=== PATIENT | male | born 1945 | race Asian ===

== ENCOUNTER 2025-03-08 19:39 | Inpatient (IN) | payer BC, MEDICARE ==
[~2025-03-08] VITALS: Ht 172.7 cm; Wt 65.8 kg
[2025-03-08] MEDS: ONDANSETRON 4 MG/2 ML VIAL IV ONE (19:45)
[2025-03-08] MEDS: IV NORMAL SALINE 500 ML BAG IV ONE (19:45)
[2025-03-08 20:32] LABS: PLATELET COUNT (AUTO) 384 K/uL (152-348); RED BLOOD CELL COUNT(AUTO) 3.97 MIL/uL (4.06-5.63); RED CELL DISTRIBUTION WIDTH 16.0 % (12.1-16.2); WHITE BLOOD COUNT (AUTO) 12.4 K/uL (3.6-10.2)
[2025-03-08 20:34] LABS: *OCCULT BLOOD STOOL NEGATIVE (NEGATIVE)
[2025-03-08] MEDS ORDERED: ONDANSETRON 4 MG/2 ML VIAL ONE (20:45)
[2025-03-08 20:53] LABS: ASPARTATE AMINOTRANSFERASE 31 U/L (15-37); CREATININE 1.1 mg/dL (0.6-1.3); SODIUM SERUM 145 mmol/L (136-145); TOTAL PROTEIN, SERUM 6.2 g/dL (6.4-8.2); UREA NITROGEN, BLOOD 21 mg/dL (7-18)
[2025-03-08 21:00] LABS: LACTIC ACID 2.4 mmol/L (0.4-2.0)
[2025-03-08] MEDS ORDERED: ASPI81TA31 PO (21:40)
[2025-03-08] MEDS ORDERED: [UNRECOGNIZED DRUG - CODE] TOP (22:27)
[2025-03-08] MEDS ORDERED: CARB1TAB33 PO (22:27)
[2025-03-08] MEDS ORDERED: CHOL500062 PO (22:27)
[2025-03-08] MEDS ORDERED: PANT40TA49 PO (22:27)
[2025-03-08] MEDS ORDERED: LOSA50TA39 PO (22:27)
[2025-03-08] MEDS ORDERED: APIX5TAB PO (22:27)
[2025-03-08] MEDS ORDERED: METF-440 PO (22:27)
[2025-03-08] MEDS ORDERED: ATOR40TA PO (22:27)
[2025-03-08] MEDS ORDERED: MAGNESIUM SULFATE/D5W 100 ML IV SCH (23:00)
[2025-03-08] MEDS: POTASSIUM CHLORIDE 50 ML IV SCH (23:00)
[2025-03-08] MEDS: IV NORMAL SALINE 500 ML IV ONE ×2 (23:03→23:30)
[2025-03-08] MEDS ORDERED: IV NORMAL SALINE 250 ML IV ONE (23:14)
[2025-03-08] MEDS ORDERED: SWABABLE VALVE TRANSFER SET EA MC ONE (23:14)
[2025-03-08] MEDS ORDERED: IOHEXOL 300MG/ML 100 ML INFUS..BTL ONE (23:14)
[2025-03-08 23:19] LABS: *BILIRUBIN,URIN 1+ (NEGATIVE); *BLOOD, URINE 2+ (NEGATIVE); *COLOR,URINE YELLOW (YELLOW); *KETONES,URINE 1+ (NEGATIVE); *PROTEIN,URINE 2+ (NEGATIVE); *UROBILINOGEN,URINE 1.0 E.U./dl (NORMAL); LEUKOCYTE ESTERASE ,URINE NEGATIVE (NEGATIVE); NITRITE, URINE NEGATIVE (NEGATIVE); UGLUCOSE NEGATIVE (NEGATIVE)
[2025-03-08] MEDS ORDERED: MAGNESIUM SULFATE/D5W 300 ML ONE (23:21)
[2025-03-08 23:24] LABS: *CLARITY,URINE HAZY (CLEAR)
[2025-03-08] MEDS: METRONIDAZOLE 500 MG/NS 100 ML PIGGYBACK IV ONE (23:30)
[2025-03-08] MEDS: PIPERACILLIN SODIUM/TAZOBACTAM 3.375 G in IV DEXTROSE 5% 50 ML IV ONE (23:30)
[2025-03-08] MEDS: POTASSIUM CHLORIDE 20 MEQ TAB.PRT.SR PO ONE (23:39)
[2025-03-08] MEDS: MAGNESIUM SULFATE/D5W 100 ML IV SCH (23:43)
[2025-03-08 23:47] LABS: SQUAMOUS EPITHELIAL CELL,UR FEW /HPF (NONE SEEN)
[2025-03-09] VITALS (33 sets, daily range): BP systolic 83–170; BP diastolic 29–96; TEMP 97.7–98.5; O2SAT 100
[2025-03-09] MEDS ORDERED: PIPERACILLIN/TAZOBACTAM/D5W 50 ML IV ONE (00:37)
[2025-03-09] MEDS ORDERED: MAGNESIUM SULFATE 1 GM/2 ML VIAL ONE ×2 (01:09→01:23)
[2025-03-09] MEDS: PROCAINAMIDE HCL IV ONE (01:15)
[2025-03-09] MEDS: MAGNESIUM SULFATE/D5W 100 ML IV SCH ×2 (01:15→01:30)
[2025-03-09] MEDS ORDERED: POTASSIUM CHLORIDE 50 ML ONE (01:21)
[2025-03-09] MEDS ORDERED: NOREPINEPHRINE 8MG/NS 250ML 250 ML IV ONE (02:04)
[2025-03-09] MEDS: NOREPINEPHRINE 8MG/NS 250ML 250 ML IV PRN (02:09)
[2025-03-09] MEDS ORDERED: LIDOCAINE 2% (GLYDO= UROJET) 10 ML JELLY MM ONE (02:30)
[2025-03-09] MEDS: POTASSIUM CHLORIDE 50 ML IV SCH ×2 (02:30→09:15)
[2025-03-09] MEDS ORDERED: METRONIDAZOLE 500 MG/NS 100ML 100 ML IV ONE (03:37)
[2025-03-09] MEDS ORDERED: AZITHROMYCIN 500MG/ D5W 250ML IVPB **ER PYXIS ONLY IV ONE (03:38)
[2025-03-09] MEDS: CALCIUM GLUCONATE IV 2 GM in IV DEXTROSE 5% 250 ML IV ONE (03:45)
[2025-03-09] MEDS: AZITHROMYCIN IV 500 MG in IV DEXTROSE 5% 250 ML IV ONE (03:55)
[2025-03-09] MEDS: LIDOCAINE 2% (GLYDO= UROJET) 10 ML JELLY MM ONE (03:56)
[2025-03-09] MEDS ORDERED: MAGNESIUM SULFATE/D5W 100 ML IV SCH (04:15)
[2025-03-09] MEDS ORDERED: CALCIUM GLUCONATE 1 GM/10 ML VIAL IV ONE ×2 (04:26→09:00)
[2025-03-09] MEDS ORDERED: REMEDY ESSENTIAL ZINC PASTE 113 GM TP PRN (05:45)
[2025-03-09] MEDS ORDERED: ONDANSETRON 4 MG/2 ML VIAL IV PRN (05:45)
[2025-03-09] MEDS ORDERED: ACETAMINOPHEN 325 MG TABLET PO PRN (05:45)
[2025-03-09 06:09] LABS: PLATELET COUNT (AUTO) 328 K/uL (152-348); RED BLOOD CELL COUNT(AUTO) 3.55 MIL/uL (4.06-5.63); RED CELL DISTRIBUTION WIDTH 16.2 % (12.1-16.2); WHITE BLOOD COUNT (AUTO) 15.5 K/uL (3.6-10.2)
[2025-03-09 06:20] LABS: CREATININE 0.9 mg/dL (0.6-1.3); SODIUM SERUM 141 mmol/L (136-145); UREA NITROGEN, BLOOD 19 mg/dL (7-18)
[2025-03-09] MEDS: IV NORMAL SALINE 100 ML BAG IV ONE (07:40)
[2025-03-09] MEDS ORDERED: PANTOPRAZOLE SODIUM 40 MG TABLET.DR PO ONE ×2 (09:00→09:01)
[2025-03-09] MEDS ORDERED: POTASSIUM CHLORIDE 200 ML ONE (09:00)
[2025-03-09] MEDS: PANTOPRAZOLE SODIUM 40 MG TABLET.DR PO SCH (09:15)
[2025-03-09] MEDS: CALCIUM GLUCONATE IV 1 GM in IV NORMAL SALINE 100 ML IV ONE (11:21)
[2025-03-09] MEDS ORDERED: METF-886 PO (11:32)
[2025-03-09] MEDS ORDERED: PROCTO MED TOP (11:33)
[2025-03-09] MEDS: ASPIRIN 81 MG TAB.CHEW PO SCH (17:55)
[2025-03-09] MEDS: APIXABAN 5 MG TABLET PO SCH (17:57)
[2025-03-09] MEDS: METRONIDAZOLE 500 MG/NS 100ML 500 MG in PREMIXED 1 EACH IV SCH (17:58)
[2025-03-09] MEDS: METFORMIN XR 500 MG TAB.SR.24H PO SCH (18:07)
[2025-03-09] MEDS: CIPROFLOXACIN IV 400 MG in PREMIXED 1 EACH IV SCH (18:07)
[2025-03-09 18:37] LABS: ABG BASE EXCESS -4.0 mmol/L (-2.0-3.0); ABG HCO3 19.8 mmol/L (21.0-28.0); ABG PCO2 31.7 mmHg (35.0-48.0); ABG PH 7.414 (7.350-7.450); ABG PO2 78.5 mmHg (83.0-108.0); ABG SITE LEFT RADIAL; ABG TOTAL HEMOGLOBIN 9.9 G/dL (13.5-17.5); AaDO2 95.9 mmHg; FIO2 21.0 %
[2025-03-09] MEDS: CARBIDOPA/LEVODOPA 25-100MG TABLET PO SCH (20:28)
[2025-03-09] MEDS: ATORVASTATIN 40 MG TABLET PO SCH (20:28)
[2025-03-10] VITALS (39 sets, daily range): BP systolic 72–139; BP diastolic 45–107; TEMP 96.7–98.2; O2SAT 92–100
[2025-03-10 05:13] LABS: PLATELET COUNT (AUTO) 246 K/uL (152-348); RED BLOOD CELL COUNT(AUTO) 3.01 MIL/uL (4.06-5.63); RED CELL DISTRIBUTION WIDTH 16.1 % (12.1-16.2); WHITE BLOOD COUNT (AUTO) 7.5 K/uL (3.6-10.2)
[2025-03-10 05:20] LABS: CREATININE 0.9 mg/dL (0.6-1.3); SODIUM SERUM 141 mmol/L (136-145); UREA NITROGEN, BLOOD 14 mg/dL (7-18)
[2025-03-10] MEDS: MAGNESIUM SULFATE/D5W 100 ML IV SCH ×2 (05:40→11:13)
[2025-03-10] MEDS: CHOLECALCIFEROL 1,000 UNIT TABLET PO SCH (08:34)
[2025-03-10] MEDS: LOSARTAN POTASSIUM 50 MG TABLET PO SCH (08:35)
[2025-03-10] MEDS ORDERED: PANTOPRAZOLE SODIUM 40 MG TABLET.DR PO SCH (09:00)
[2025-03-10] MEDS: POTASSIUM CHLORIDE 50 ML IV SCH (11:16)
[2025-03-10] MEDS: CALCIUM GLUCONATE IV 2 GM in IV NORMAL SALINE 100 ML IV ONE (11:19)
[2025-03-10] MEDS: IV NORMAL SALINE 500 ML IV ONE (13:51)
[2025-03-11] VITALS (7 sets, daily range): BP systolic 92–106; BP diastolic 52–66; TEMP 97.3–97.8; O2SAT 93–98
[2025-03-11 07:03] LABS: PLATELET COUNT (AUTO) 223 K/uL (152-348); RED BLOOD CELL COUNT(AUTO) 3.13 MIL/uL (4.06-5.63); RED CELL DISTRIBUTION WIDTH 16.1 % (12.1-16.2); WHITE BLOOD COUNT (AUTO) 9.2 K/uL (3.6-10.2)
[2025-03-11 07:26] LABS: CREATININE 0.7 mg/dL (0.6-1.3); SODIUM SERUM 136 mmol/L (136-145); UREA NITROGEN, BLOOD 11 mg/dL (7-18)
[2025-03-11] MEDS: MIDODRINE HCL 5 MG TABLET PO PRN (09:57)
[2025-03-11] MEDS: CALCIUM GLUCONATE IV 2 GM in IV NORMAL SALINE 100 ML IV ONE (11:52)
[2025-03-11] MEDS: NEUTRA PHOS PACKET PO ONE (14:49)
[2025-03-12] VITALS (8 sets, daily range): BP systolic 93–108; BP diastolic 48–64; TEMP 97.3–98.3; O2SAT 86–98
[2025-03-12] MEDS ORDERED: MIDO5TAB4 PO (12:26)
[2025-03-12] MEDS ORDERED: CIPR-489 PO (12:26)
[2025-03-12] MEDS ORDERED: METR-147 PO (12:26)
[2025-03-12 13:03] LABS: PLATELET COUNT (AUTO) 237 K/uL (152-348); RED BLOOD CELL COUNT(AUTO) 3.08 MIL/uL (4.06-5.63); RED CELL DISTRIBUTION WIDTH 15.8 % (12.1-16.2); WHITE BLOOD COUNT (AUTO) 9.9 K/uL (3.6-10.2)
[2025-03-12 13:07] LABS: CREATININE 0.7 mg/dL (0.6-1.3); SODIUM SERUM 138 mmol/L (136-145); UREA NITROGEN, BLOOD 13 mg/dL (7-18)
[2025-03-13 05:50] VITALS: BP 90/50; TEMP 98; O2SAT 95
[2025-03-13 12:11] VITALS: BP 103/65; O2SAT 92
[2025-03-13 15:08] VITALS: BP 108/72; O2SAT 96
[2025-03-13] MEDS: IV NS 1000 ML 1,000 ML IV PRN (15:48)
[2025-03-13] MEDS: CIPROFLOXACIN HCL 250 MG TABLET PO SCH (17:44)
[2025-03-13 20:00] VITALS: BP 90/54; TEMP 97.7; O2SAT 92
[2025-03-13] MEDS ORDERED: METRONIDAZOLE 500 MG TABLET PO SCH (22:00)
== END 2025-03-13 22:17 | DRG 871 ==
LOC: ER 20:03 → CCU 03-09 08:36 → TELE3 03-10 15:48 → MEDSURG3 03-11 09:45
PROVIDERS: ADMIT Nurse Practitioner Family; ATTEND Nurse Practitioner Acute Care
PROC: 02HV33Z Insertion of Infusion Device into Superior Vena Cava, Percutaneous Approach (ICD-10-PCS; principal; 2025-03-09)
PROC: 5A09357 Assistance with Respiratory Ventilation, Less than 24 Consecutive Hours, Continuous Positive Airway Pressure (ICD-10-PCS; 2025-03-09)
PROC: 5A12012 Performance of Cardiac Output, Single, Manual (ICD-10-PCS; 2025-03-13)
PROC: 0BH17EZ Insertion of Endotracheal Airway into Trachea, Via Natural or Artificial Opening (ICD-10-PCS; 2025-03-13)
DX: A41.9 Sepsis, unspecified organism (principal); R57.1 Hypovolemic shock; E87.20 Acidosis, unspecified; J90 Pleural effusion, not elsewhere classified; E44.1 Mild protein-calorie malnutrition; R18.8 Other ascites; E83.51 Hypocalcemia; A04.9 Bacterial intestinal infection, unspecified; Z79.01 Long term (current) use of anticoagulants; G20.A1 Parkinson's disease without dyskinesia, without mention of fluctuations; E11.9 Type 2 diabetes mellitus without complications; I10 Essential (primary) hypertension; I48.0 Paroxysmal atrial fibrillation; E87.6 Hypokalemia; I25.10 Atherosclerotic heart disease of native coronary artery without angina pectoris; H91.93 Unspecified hearing loss, bilateral; E83.42 Hypomagnesemia; E88.09 Other disorders of plasma-protein metabolism, not elsewhere classified; E87.70 Fluid overload, unspecified; Z79.82 Long term (current) use of aspirin; Z79.899 Other long term (current) drug therapy; R00.0 Tachycardia, unspecified; I45.10 Unspecified right bundle-branch block
CPT/HCPCS: 36415; 36600; 71045; 83605; 83690; 83735; 84100; 84484; 85025; 87040; 87086; 94660; 94760; A4606; A4663; A6209; A6213; G0378; J0456; J0612; J0744; J2405; J2543; J2690; J3475; J3480; J3490; J7040; Q9967